=== PATIENT | male | born 1935 | race Caucasian/White ===

== ENCOUNTER 2021-10-26 09:57 | Observation (INO) | payer MEDICARE ==
[2021-10-26 10:49] VITALS: BMI 29.8
[2021-10-26] MEDS ORDERED: Ondansetron ODT 4 MG TAB PO PRN (11:36)
[2021-10-26] MEDS ORDERED: Acetaminophen 325 MG TAB PO PRN (11:36)
[2021-10-26] MEDS ORDERED: Ondansetron PF 4 MG/2 ML Vial IVP PRN (11:36)
[2021-10-26] MEDS ORDERED: traMADol HCl 50 MG TAB PO PRN (14:11)
[2021-10-26] MEDS ORDERED: Gabapentin 300 MG CAP PO SCH (15:00)
[2021-10-26 17:22] VITALS: BP 190/84; TEMP 97.9
[2021-10-26] MEDS ORDERED: traZODone HCl 50 MG TAB PO SCH (21:00)
[2021-10-27] MEDS ORDERED: Vit A,C & E/Lutein/Minerals Tablet PO SCH (09:00)
[2021-10-27] MEDS ORDERED: Rosuvastatin 20 MG TAB PO SCH (09:00)
[2021-10-27] MEDS ORDERED: Aspirin 325 MG TAB PO SCH (09:00)
[2021-10-27] MEDS ORDERED: Tamsulosin HCl 0.4 MG CAP PO SCH (09:00)
[2021-10-27] MEDS ORDERED: Magnesium Oxide 250 MG TAB PO SCH (09:00)
[2021-10-27] MEDS ORDERED: Enoxaparin Sodium 30 MG/0.3 ML SYRINGE SC SCH (09:00)
== END 2021-10-26 19:00 | disposition home or self-care (01) ==
LOC: CSHTELE 10:21
PROVIDERS: ADMIT Student in an Organized Health Care Education/Training Program; ATTEND Student in an Organized Health Care Education/Training Program
DX: R07.2 Precordial pain (principal); I25.10 Atherosclerotic heart disease of native coronary artery without angina pectoris; I10 Essential (primary) hypertension; E78.5 Hyperlipidemia, unspecified; G62.9 Polyneuropathy, unspecified; N40.0 Benign prostatic hyperplasia without lower urinary tract symptoms; I49.5 Sick sinus syndrome; I48.0 Paroxysmal atrial fibrillation; Z86.73 Personal history of transient ischemic attack (TIA), and cerebral infarction without residual deficits; Z79.01 Long term (current) use of anticoagulants; Z79.899 Other long term (current) drug therapy; Z95.0 Presence of cardiac pacemaker; Z95.5 Presence of coronary angioplasty implant and graft; Z95.820 Peripheral vascular angioplasty status with implants and grafts; Z20.822 Contact with and (suspected) exposure to COVID-19
CPT/HCPCS: U0003; U0005; G0378

== ENCOUNTER 2023-02-23 05:19 | Inpatient (IN) | payer MEDICARE ==
[2023-02-23] MEDS ORDERED: Sodium Chloride 0.9% 1,000 ML IV SCH (07:15)
[2023-02-23 07:34] VITALS: BMI 29.9
[2023-02-23 08:10] LABS: Magnesium 2.4 mg/dL (1.6-2.6)
[2023-02-23 08:16] LABS: Troponin I Less than 0.010 ng/mL (< 0.028)
[2023-02-23] MEDS ORDERED: Acetaminophen 325 MG TAB PO PRN (10:03)
[2023-02-23] MEDS ORDERED: Acetaminophen 650 MG Suppository PR PRN (10:03)
[2023-02-23 11:24] LABS: Troponin I Less than 0.010 ng/mL (< 0.028)
[2023-02-23 13:54] LABS: Troponin I 0.018 ng/mL (< 0.028)
[2023-02-23] MEDS ORDERED: FLU VACC QS2023(65UP)/MF59C/PF 60 MCG/0.5 ML SYRINGE IM ONE (20:45)
[2023-02-23] MEDS ORDERED: Donepezil HCl 5 MG TAB PO SCH (21:00)
[2023-02-23] MEDS ORDERED: Atorvastatin Calcium 40 MG TAB PO SCH (21:00)
[2023-02-23] MEDS: Gabapentin 300 MG CAP PO SCH (21:19)
[2023-02-23] MEDS: Famotidine 20 MG TAB PO SCH (21:20)
[2023-02-24 05:05] LABS: Magnesium 2.3 mg/dL (1.6-2.6)
[2023-02-24] MEDS ORDERED: Divalproex Sodium 125 mg Sprinkle Capsule PO SCH (09:00)
[2023-02-24] MEDS ORDERED: DULoxetine 30 MG CAP PO SCH (09:00)
[2023-02-24] MEDS ORDERED: Aspirin 81 mg Enteric Coated Tablet PO SCH (09:00)
[2023-02-24] MEDS: Gabapentin 300 MG CAP PO SCH (09:14)
[2023-02-24] MEDS: Famotidine 20 MG TAB PO SCH (09:14)
[2023-02-24] MEDS ORDERED: Iopamidol 370 76% 100 ML VIAL ONE (10:23)
[2023-02-24] MEDS ORDERED: Lactated Ringer's 1,000 ML IV SCH (12:00)
[2023-02-24 12:48] LABS: #Eosinphils 0.2 10x3/uL (0.0-0.5); #Monocytes 0.9 10x3/uL (0.0-1.1); #Neutrophils 4.5 10x3/uL (1.5-8.4); %Basophils 0.4 % (0.0-2.0); %Lymphocytes 28.4 % (18.0-47.0); %Neutrophils 56.8 % (40.0-75.0); Hematocrit 30.7 % (38.8-50.0); Hemoglobin 10.2 g/dL (13.5-17.5); Mean Corpuscular HGB CONC 33.2 g/dL (32.0-36.0); Mean Corpuscular Hemoglobin 33.9 pg (27.0-33.0); Mean Platelet Volume 9.4 fl (7.4-10.4); Platelet Count 163 10x3/uL (150-450); RBC Distribution Width 13.1 % (11.5-14.5); Red Blood Cell (RBC) Count 3.01 10x6/uL (4.32-5.72); White Blood Cell (WBC) Count 7.8 10x3/uL (3.5-10.5)
[2023-02-24 13:05] LABS: Anion Gap 12 mmol/L (10-20); BUN (Urea Nitrogen) 24 mg/dL (8.4-25.7); Calc. Creatinine Clearance 37 mL/min (70-130); Calcium 8.6 mg/dL (7.8-10.44); Carbon Dioxide 25 mmol/L (23-31); Chloride 108 mmol/L (98-107); Estimated GFR 32; Glucose 93 mg/dL (83-110); Sodium 141 mmol/L (136-145)
[2023-02-24 18:09] VITALS: BP 121/59; TEMP 98
[2023-02-24] MEDS ORDERED: Lorazepam 0.5 MG TAB PO SCH (18:30)
== END 2023-02-24 20:00 | DRG 312 ==
LOC: CSHTELE 06:27 → OBSVTOIN 02-24 11:58
PROVIDERS: ADMIT Family Medicine; ATTEND Hospitalist
DX: I95.1 Orthostatic hypotension (principal); F02.83 Dementia in other diseases classified elsewhere, unspecified severity, with mood disturbance; E78.5 Hyperlipidemia, unspecified; I25.10 Atherosclerotic heart disease of native coronary artery without angina pectoris; I49.5 Sick sinus syndrome; I48.0 Paroxysmal atrial fibrillation; M48.00 Spinal stenosis, site unspecified; N40.0 Benign prostatic hyperplasia without lower urinary tract symptoms; N18.9 Chronic kidney disease, unspecified; I12.9 Hypertensive chronic kidney disease with stage 1 through stage 4 chronic kidney disease, or unspecified chronic kidney disease; M54.16 Radiculopathy, lumbar region; G62.9 Polyneuropathy, unspecified; R07.9 Chest pain, unspecified; I65.23 Occlusion and stenosis of bilateral carotid arteries; K40.90 Unilateral inguinal hernia, without obstruction or gangrene, not specified as recurrent; M48.061 Spinal stenosis, lumbar region without neurogenic claudication; G30.9 Alzheimer's disease, unspecified; Z95.0 Presence of cardiac pacemaker; Z98.890 Other specified postprocedural states; Z79.899 Other long term (current) drug therapy; Z86.73 Personal history of transient ischemic attack (TIA), and cerebral infarction without residual deficits; Z95.5 Presence of coronary angioplasty implant and graft
CPT/HCPCS: 36415; 36416; 70496; 70498; 80048; 83735; 84443; 85025; 93306; 93880; 94760; G0378; J7050; J7120; Q9967